=== PATIENT | male | born 1960 | race Caucasian/White ===

== ENCOUNTER 2023-04-28 17:06 | Emergency (ER) | payer BC, SELFPAY ==
[2023-04-28] VITALS (9 sets, daily range): BP systolic 95–131; BP diastolic 61–77; PULSE 74–86; RESP 13–24; TEMP 36.6; O2SAT 92–95; BMI 27.8
--- NOTE | 2023-04-28 | DI.CT.S_ITS ---
PROCEDURE: CT HEAD/BRAIN WO CON INDICATIONS: DIZZINESS TECHNIQUE: Noncontrast 4.5 mm thick angled axial sections acquired from the foramen magnum to the vertex, with coronal and sagittal reformats. For radiation dose reduction, the following was used: automated exposure control, adjustment of mA and/or kV according to patient size. COMPARISON: None. FINDINGS: Image quality: Diagnostic. CSF spaces: Basal cisterns are patent. No extra-axial fluid collections. The ventricles are symmetric in size and shape. Brain: No intracranial bleeds or masses. There is cerebral volume loss for age, with resultant ventricular and sulcal prominence. There are periventricular and deep white matter chronic small vessel ischemic changes. There is intracranial internal carotid artery atherosclerosis. Skull and face: Calvarium and visualized facial bones appear intact, without suspicious lesions. Sinuses: Visualized sinuses and mastoids are clear. IMPRESSION: No acute intracranial pathology. Approved by: Edwige Busch M.D. on 04/28/2023 at 18:37
--- NOTE | 2023-04-28 17:36 | DI.CT.S_ITS ---
PROCEDURE: CT ANGIO HEAD AND NECK INDICATIONS: dizzy TECHNIQUE: After the administration of intravenous contrast, 1 mm thick sections acquired from the aortic arch through the [place]. 3-dimensional [id number] (MIP) and/or volume rendering reformats were acquired of the central intracranial vasculature and neck separately. For radiation dose reduction, the following was used: automated exposure control, adjustment of mA and/or kV according to patient size. COMPARISON: None. FINDINGS: Image quality: Diagnostic. BRAIN: CSF spaces: Ventricles are normal in size and shape. Basal cisterns are patent. No extra-axial fluid collections. Brain: No significant abnormality of the brain can be seen. Skull and face: Calvarium and facial bones appear intact, without suspicious lesions. Orbits appear normal. Sinuses: Sinuses and mastoids are clear. HEAD CT ANGIOGRAPHY: Anterior circulation: Intracranial internal carotid arteries are normal in size and flow. The flow within the paired anterior cerebral arteries is normal and symmetric. The flow within the middle cerebral arteries is normal and symmetric. The anterior communicating artery is seen. No aneurysms are seen. Posterior circulation: Visualized portions of the vertebral arteries demonstrate normal caliber, and join to form a normal appearing basilar artery. Flow within the posterior cerebral arteries is normal and symmetric. No aneurysms are seen. NECK CT ANGIOGRAPHY: Carotid system: The great vessels demonstrate a conventional anatomy as they arise from the aortic arch. The origins of the common carotid arteries appear patent. The common carotid arteries demonstrate normal caliber and courses. The bifurcation regions are both widely patent. The internal carotid arteries demonstrate normal calibers and courses. Posterior circulation: The origins of the vertebral arteries both appear widely patent. The more superior extracranial portions of both vertebral arteries also demonstrate normal courses and calibers. They join to form a normal appearing basilar artery. Soft tissues: Visualized neck soft tissues demonstrate no suspicious abnormalities. Bones: No suspicious bony lesions. Visualized cervical spine appears normally aligned. IMPRESSION: No significant intracranial arterial abnormality is seen. No significant abnormality is seen within the arteries of the neck. Any quantitative measurements of stenosis were performed using NASCET criteria. Right Approved by: Edwige Busch M.D. on 04/28/2023 at 18:36
--- NOTE | 2023-04-28 17:36 | DI.RAD.S_ITS ---
PROCEDURE: XR CHEST 1V INDICATIONS: chest pain TECHNIQUE: One view of the chest was acquired. COMPARISON: None. FINDINGS: Surgical changes and devices: None. Lungs and pleura: Lungs are clear. No pleural effusions or pneumothorax. Mediastinum: Mediastinal contours appear normal. Heart size is normal. Bones and chest wall: No suspicious bony lesions. Overlying soft tissues appear unremarkable. IMPRESSION: No acute cardiopulmonary abnormality is seen. Approved by: Edwige Busch M.D. on 04/28/2023 at 17:44
--- NOTE | 2023-04-28 17:38 | ED.DIZZY ---
HPI - Dizziness <Josie Wood DO - Last Filed: 05/01/23 09:54> General Chief Complaint: Dizziness Stated Complaint: dizzy/states has coronary artery disease Time Seen by Provider: 04/28/23 17:28 History of Present Illness HPI Narrative: Patient is a 62-year-old male with history of diabetes, severe coronary artery disease multiple stents presenting today with dizziness. He reports that he does get some episodes of dizziness which seems to be positional. However today walking the dog got very dizzy and needed to sit down. He denies any sort of chest pain or shortness of breath. He has no nausea or vomiting denies any visual changes. No numbness tingling or weakness. They are visiting from [place] and were planning on going back to [place] this afternoon. Exam <Josie Wood DO - Last Filed: 05/01/23 09:54> Initial Vital Signs Initial Vital Signs: Vital Signs Pulse Rate 84 04/28/23 17:13 Respiratory Rate 17 04/28/23 17:13 Pulse Oximetry 94 04/28/23 17:13 GENERAL: Alert pleasant well-appearing male and in no acute distress. HEENT: Head atraumatic,EOMI, pupils reactive, face symmetric, moist mucous membranes CARDIOVASCULAR: Regular rate and rhythm without murmurs, rubs or gallops. RESPIRATORY: Breath sounds equal bilaterally, no wheezes rales or rhonchi. ABDOMEN: Soft, nontender. Normoactive bowel sounds all 4 quadrants. No guarding or rebound. EXTREMITIES: Normal range of motion, no clubbing or edema. Neurovascularly intact NEUROLOGICAL: Alert and oriented x4.Normal gait and speech. Roof Bolter Helper strength equal bilaterally good [id number] no facial droop SKIN: Warm, dry, no laceration, no petechiae, no rashes or lesions. <Avelina Garcia MD - Last Filed: 04/28/23 19:56> Initial Vital Signs Initial Vital Signs: Vital Signs Pulse Rate 84 04/28/23 17:13 Respiratory Rate 17 04/28/23 17:13 Pulse Oximetry 94 04/28/23 17:13 Scores <Josie Wood DO - Last Filed: 05/01/23 09:54> NIH Stroke Scale Level of Conciousness: Alert, keenly responsive Ask month/age: Answers both questions correctly. Open/close eyes, close hand: Performs both tasks correctly Best gaze horizontal: Normal Visual chacon: No visual loss Facial palsy: Normal symetrical movement Left arm drift: No drift for full 10 sec Right arm drift: No drift for full 10 sec Left leg drift: No drift for full 5 sec Right leg drift: No drift for full 5 sec Limb ataxia: Absent Sensory on face/arms/legs: Normal, no sensory loss Best language: No aphasia, normal Dysarthria: Normal Extinction or inattention: No abnormality Total NIH Stroke scale score: 0 <Avelina Garcia MD - Last Filed: 04/28/23 19:56> NIH Stroke Scale Total NIH Stroke scale score: 0 Course <Josie Wood DO - Last Filed: 05/01/23 09:54> Orders Ordered: ED Orders 04/28/23 17:20 Complete Blood Count AUTO DIFF Stat Comprehensive Metabolic Panel Stat Lipase Stat Troponin & CK Cardiac Panel Stat 04/28/23 17:36 CT angio head and neck Stat XR chest 1V Stat Vital Signs Vital signs: Vital Signs - 8 hr 04/28/23 17:13 04/28/23 17:17 04/28/23 17:30 Temperature 97.9 F Pulse Rate 84 80 Respiratory Rate 17 16 Blood Pressure 117/67 131/74 Pulse Oximetry 94 94 Oxygen Delivery Method Room Air 04/28/23 18:00 04/28/23 18:01 04/28/23 18:01 Temperature Pulse Rate 86 79 Respiratory Rate 24 18 Blood Pressure 105/61 Pulse Oximetry 93 93 Oxygen Delivery Method 04/28/23 18:30 04/28/23 18:30 Temperature Pulse Rate 81 Respiratory Rate 17 Blood Pressure 95/62 Pulse Oximetry 92 Oxygen Delivery Method <Avelina Garcia MD - Last Filed: 04/28/23 19:56> Orders Ordered: ED Orders 04/28/23 17:20 Complete Blood Count AUTO DIFF Stat Comprehensive Metabolic Panel Stat Lipase Stat Troponin & CK Cardiac Panel Stat 04/28/23 17:36 CT angio head and neck Stat XR chest 1V Stat Vital Signs Vital signs: Vital Signs - 8 hr 04/28/23 17:13 04/28/23 17:17 04/28/23 17:30 Temperature 97.9 F Pulse Rate 84 80 Respiratory Rate 17 16 Blood Pressure 117/67 131/74 Pulse Oximetry 94 94 Oxygen Delivery Method Room Air 04/28/23 18:00 04/28/23 18:01 04/28/23 18:01 Temperature Pulse Rate 86 79 Respiratory Rate 24 18 Blood Pressure 105/61 Pulse Oximetry 93 93 Oxygen Delivery Method 04/28/23 18:30 04/28/23 18:30 Temperature Pulse Rate 81 Respiratory Rate 17 Blood Pressure 95/62 Pulse Oximetry 92 Oxygen Delivery Method MDM - Dizziness <Josie Wood, DO - Last Filed: 05/01/23 09:54> Lab Data 04/28/23 17:20 04/28/23 17:20 Labs: Lab Results 04/28/23 Range/Units 17:20 WBC 10.5 (4.5-11.0) X10^3/uL RBC 4.74 (4.5-5.9) X10^6/uL Hgb 14.6 (13.5-17.5) g/dL Hct 43.7 (41-53) % MCV 92.2 (80-100) fL MCH 30.9 (26-34) PG MCHC 33.5 (30-36) % RDW 13.7 (11.6-14.8) % Plt Count 219 (150-400) X10^3/uL Neut % (Auto) 70.1 (50-75) % Lymph % (Auto) 18.5 L (25-40) % [place] % (Auto) 8.3 (3-14) % Eos % (Auto) 2.2 (2-4) % Baso % (Auto) 0.9 (0-2) % Neut # (Auto) 7400 H (7546-9334) /uL Lymph # (Auto) 1900 (7758-7618) /uL [place]aney # (Auto) 900 (0-900) /uL Eos # (Auto) 200 (0-450) /uL Baso # (Auto) 100 (0-100) /uL Sodium 142 (137-145) mmol/L Potassium 4.1 (3.4-5.1) mmol/L Chloride 110 H (98-107) mmol/L Carbon Dioxide 23 (22-32) mmol/L BUN 18 (9-20) mg/dL Creatinine 1.06 (0.66-1.25) mg/dL Estimated GFR > 60 (>60) mL/min BUN/Creatinine Ratio 17.0 (6-22) Glucose 106 (80-110) mg/dL Calcium 9.1 (8.4-10.2) mg/dL Total Bilirubin 0.7 (0.2-1.3) mg/dL AST 51 (17-59) IU/L ALT 34 (<50) IU/L Alkaline Phosphatase 125 (38-126) U/L Total Creatine Kinase 185 H (55-170) U/L Troponin I < 0.012 (0.01-0.034) ng/mL Total Protein 8.0 (6.3-8.2) g/dL Albumin 4.1 (3.5-5.0) g/dL Globulin 3.9 (1.7-4.1) g/dL Albumin/Globulin Ratio 1.1 (1.0-2.8) Lipase 218 (23-300) U/L ECG Data Interpretation: Sinus rhythm rate 82 IN interval 174 QRS 88 QTC 432 Q-wave noted in 2 and AVF along with V3 V4 V5 and V6 no ST elevations or depressions no priors to compare MDM Narrative Medical decision making narrative: Patient is 62-year-old male presents today with dizziness. Has severe vascular disease multiple cardiac stents he actually has known carotid artery stenosis as well. He does have some episodes of dizziness today dizziness seems to be lasting longer. He overall appears comfortable and well. No neurologic deficits. Low suspicion for posterior stroke. More concerning for carotid stenosis. Blood work has been reviewed troponin is negative electrolytes within normal limits no FREDY no anemia or leukocytosis Imaging pain EKG reviewed Patient signed out to Dr. Treadwell <Avelina Garcia MD - Last Filed: 04/28/23 19:56> Lab Data Labs: Lab Results 04/28/23 Range/Units 17:20 WBC 10.5 (4.5-11.0) X10^3/uL RBC 4.74 (4.5-5.9) X10^6/uL Hgb 14.6 (13.5-17.5) g/dL Hct 43.7 (41-53) % MCV 92.2 (80-100) fL MCH 30.9 (26-34) PG MCHC 33.5 (30-36) % RDW 13.7 (11.6-14.8) % Plt Count 219 (150-400) X10^3/uL Neut % (Auto) 70.1 (50-75) % Lymph % (Auto) 18.5 L (25-40) % [place] % (Auto) 8.3 (3-14) % Eos % (Auto) 2.2 (2-4) % Baso % (Auto) 0.9 (0-2) % Neut # (Auto) 7400 H (5626-2244) /uL Lymph # (Auto) 1900 (2644-3528) /uL [place] # (Auto) 900 (0-900) /uL Eos # (Auto) 200 (0-450) /uL Baso # (Auto) 100 (0-100) /uL Sodium 142 (137-145) mmol/L Potassium 4.1 (3.4-5.1) mmol/L Chloride 110 H (98-107) mmol/L Carbon Dioxide 23 (22-32) mmol/L BUN 18 (9-20) mg/dL Creatinine 1.06 (0.66-1.25) mg/dL Estimated GFR > 60 (>60) mL/min BUN/Creatinine Ratio 17.0 (6-22) Glucose 106 (80-110) mg/dL Calcium 9.1 (8.4-10.2) mg/dL Total Bilirubin 0.7 (0.2-1.3) mg/dL AST 51 (17-59) IU/L ALT 34 (<50) IU/L Alkaline Phosphatase 125 (38-126) U/L Total Creatine Kinase 185 H (55-170) U/L Troponin I < 0.012 (0.01-0.034) ng/mL Total Protein 8.0 (6.3-8.2) g/dL Albumin 4.1 (3.5-5.0) g/dL Globulin 3.9 (1.7-4.1) g/dL Albumin/Globulin Ratio 1.1 (1.0-2.8) Lipase 218 (23-300) U/L [facility] Narrative Medical decision making narrative: Patient is 62-year-old male presents today with dizziness. Has severe vascular disease multiple cardiac stents he actually has known carotid artery stenosis as well. He does have some episodes of dizziness today dizziness seems to be lasting longer. He overall appears comfortable and well. No neurologic deficits. Low suspicion for posterior stroke. More concerning for carotid stenosis. Blood work has been reviewed troponin is negative electrolytes within normal limits no FREDY no anemia or leukocytosis Imaging pain EKG reviewed Patient signed out to Dr. Garcia 745pm Dr Garcia Care is assumed, patient is examined chart is reviewed Labs are notable for an unremarkable CBC with no leukocytosis or anemia Metabolic panel is reassuring Troponin is undetectable EKG shows sinus rhythm at a rate of 80 no significant ischemic changes, leftward axis Imaging studies Chest x-ray is unremarkable CT scan of the head is unremarkable CT angiogram of the head and neck was done and shows no significant arterial abnormalities within the head or neck to suggest impending stroke or concern. Patient is re-evaluated. There was no evidence of orthostasis and he is feeling entirely back to normal. At this time I do not have a life-threatening abnormality to explain the dizzy episode he had while standing earlier today. There does not appear to be an acute coronary event, significant dehydration, stroke or diminished posterior circulation blood flow. No evidence of infection or significant anemia. Findings reviewed with the patient. I did recommend checking blood pressures and heart rate pre and post exercise to see how he feels. I also recommended large glass of water prior to going for a walk. He will follow up with his primary care provider and return if symptoms worsen. He is safe for discharge Discharge Plan Departure Patient Disposition: Home Clinical Impression: Dizziness Instructions: DI for Dizziness-Nonvertigo Activity Restrictions/Additional Instructions: Thank you for coming in today Your workup was actually very reassuring. There was no evidence of heart attack, infection, significant anemia. The chest x-ray was normal your EKG did not show any acute changes. The head CT showed no significant abnormalities in the CT angiogram showed the all of the blood vessels from your heart up to the top of your head are open with appropriate flow throughout. At this time, I do not have a complete explanation for the dizziness he experienced but I do not think that it is life-threatening. I would recommend that you get your blood pressure cuff out and keep track of your blood pressure over the next week or 2 and take those blood pressure readings in with you with a follow up appointment made with your primary care physician. Another simple thing to do would also be to have a large glass of water prior to your walk. If you find that you are getting worse or develop any new symptoms, please feel free to return to the emergency department for further evaluation. Stand Alone Forms: Patient Portal/API
[2023-04-28 17:44] LABS: Add Manual Diff / Slide Review NO; Basophils Absolute Auto 100 /uL (0-100); Basophils Percent Auto 0.9 % (0-2); Eosinophils Absolute Auto 200 /uL (0-450); Eosinophils Percent Auto 2.2 % (2-4); Hematocrit 43.7 % (41-53); Hemoglobin 14.6 g/dL (13.5-17.5); Lymphocytes Absolute Auto 1900 /uL (1100-4500); Lymphocytes Percent Auto 18.5 % (25-40); Mean Corpuscular HGB Conc 33.5 % (30-36); Mean Corpuscular Hemoglobin 30.9 PG (26-34); Mean Corpuscular Volume 92.2 fL (80-100); Monocytes Absolute Auto 900 /uL (0-900); Monocytes Percent Auto 8.3 % (3-14); Neutrophils Absolute Auto 7400 /uL (1500-7000); Neutrophils Percent Auto 70.1 % (50-75); Platelet Count 219 X10^3/uL (150-400); Red Blood Cell Count 4.74 X10^6/uL (4.5-5.9); Red Cell Distribution Width 13.7 % (11.6-14.8); White Blood Cell Count 10.5 X10^3/uL (4.5-11.0)
[2023-04-28 17:51] LABS: Alanine Aminotransferase 34 IU/L (<50); Albumin 4.1 g/dL (3.5-5.0); Albumin Globulin Ratio 1.1 (1.0-2.8); Alkaline Phosphatase 125 U/L (38-126); Aspartate Aminotransferase 51 IU/L (17-59); Bilirubin Total 0.7 mg/dL (0.2-1.3); Blood Urea Nitrogen 18 mg/dL (9-20); Calcium 9.1 mg/dL (8.4-10.2); Carbon Dioxide 23 mmol/L (22-32); Chloride 110 mmol/L (98-107); Creatine Kinase 185 U/L (55-170); Estimated Glomerular Filt Rate > 60 mL/min (>60); Globulin 3.9 g/dL (1.7-4.1); Glucose 106 mg/dL (80-110); HEMOLYSIS 38 (0-50); Lipase 218 U/L (23-300); Potassium 4.1 mmol/L (3.4-5.1); Sodium 142 mmol/L (137-145)
[2023-04-28 18:03] LABS: Troponin I < 0.012 ng/mL (0.01-0.034)
== END 2023-04-28 20:01 | disposition home or self-care (01) ==
PROVIDERS: Emergency Medicine; Emergency Provider Emergency Medicine
DX: R42 Dizziness and giddiness (principal); R07.9 Chest pain, unspecified
CPT/HCPCS: 36415; 70450; 70496; 70498; 71045; 80053; 82550; 83690; 84484; 85025; 93005; 93010; 99284; Q9967